=== PATIENT | male | born 1960 | race Caucasian/White ===

== ENCOUNTER → 2017-01-31 | Day surgery (SDC) | payer OTHER ==
[~2017-01-31] MED LIST: NO MEDICATIONS
--- NOTE | ~2017-01-31 | OR ---
Unit #: [id number] #: [id number] Patient: JE CASILLAS [id number] [address] [place], [place] [address] [id number] O MR#: [id number] NAME: JE CASILLAS ROOM: Date of Procedure: 01/31/2017 Admission Date: 01/31/2017 Surgeon: Jose Durand M.D. : 1960 Attending Physician: Jose Durand M.D. Primary Care Physician: Mannie Casillas Jr., M.D. OPERATIVE REPORT PRIMARY CARE PHYSICIAN Mannie Casillas M.D. PREOPERATIVE DIAGNOSIS Colorectal cancer screening in an average-risk patient. PROCEDURE PERFORMED Colonoscopy up to cecum and terminal ileum with excellent preparation and good visualization. POSTOPERATIVE DIAGNOSES Small internal hemorrhoids. Otherwise, normal examination up to cecum and terminal ileum. No polyps or diverticula were seen. The quality of the prep was excellent. RECOMMENDATIONS Repeat colonoscopy in 10 years. SEDATION USED MAC. DESCRIPTION OF PROCEDURE Following detailed explanation of the potential risks and complications of a colonoscopy, namely perforation, bleeding, and complications related to sedation, the patient was brought to GI lab and laid in the left lateral decubitus position. A digital rectal examination was performed, which was normal. Lubricated tip of Olympus video colonoscope was inserted through the anus and advanced under direct vision. The scope was advanced and passed up to sigmoid into descending colon. No diverticula were seen in this area. The scope tip was then navigated all the way up to cecum with visualization of ileocecal valve and the appendiceal orifice. Preparation was excellent with good visualization and photodocumentation was obtained. Last several inches of the terminal ileum also visualized after intubation of the ileocecal valve and appeared normal. Successive segments of the colonic mucosa were examined upon withdrawal and appeared unremarkable. There being no polyps, mass lesions, or AVMs. No diverticula noted. The patient did have small internal hemorrhoids seen at the anal verge. The scope was then withdrawn. The patient returned to the recovery area. He tolerated the procedure without any postprocedure complications. Dictated by... Unit #: [id number] #: [id number] Patient: JE CASILLAS Dougie Downs/mau TD: 02/01/2017 01:46 JOB #: [id number] OPERATIVE REPORT Page 1 of 1 X Jose Durand MD PROCEDURE OPERATIVE NOTE
== END | disposition home or self-care (01) ==
LOC: COPS 07:57
PROVIDERS: Internal Medicine Gastroenterology
PROC: 0DJD8ZZ Inspection of Lower Intestinal Tract, Via Natural or Artificial Opening Endoscopic (ICD-10-PCS; principal; 2017-01-31 09:30)
DX: Z12.11 Encounter for screening for malignant neoplasm of colon (principal); K64.8 Other hemorrhoids; Z98.890 Other specified postprocedural states
CPT/HCPCS: J2250